=== PATIENT | female | born 1995 | race Caucasian/White ===

== ENCOUNTER 2024-03-12 18:55 | Emergency (ER) | payer BC, MEDICAID ==
[~2024-03-12] VITALS: Ht 172.7 cm; Wt 92.8 kg
[~2024-03-12 18:55] MED LIST: IBUP-24 PO
[2024-03-12] MEDS: proCHLORperazine 10 MG/2 ml inj IV ONE (19:47)
[2024-03-12] MEDS: acetaminophen 325mg tablet PO ONE (19:47)
[2024-03-12] MEDS: normal saline 1000ml 1,000 ML IV ONE (19:47)
[2024-03-12] MEDS: ketorolac trometh 15mg/ml vial 15 MG/ML ML IV ONE (19:51)
[2024-03-12] MEDS: diphenhydrAMINE 50 mg/ml inj IV ONE (20:07)
[2024-03-12 20:18] VITALS: BP 140/89; PULSE 89; RESP 18; TEMP 98.6; O2SAT 99
== END 2024-03-12 20:19 | disposition home or self-care (01) ==
LOC: ER 18:56
DX: G43.909 Migraine, unspecified, not intractable, without status migrainosus (principal)
CPT/HCPCS: 96374; 96375; 99284; J0780; J1200; J1885; J7030

== ENCOUNTER 2024-06-11 19:24 | Emergency (ER) | payer MEDICAID ==
[~2024-06-11] VITALS: Ht 172.7 cm; Wt 90.9 kg
[2024-06-11 20:17] LABS: URINE HCG NEGATIVE (NEG)
[2024-06-11 20:22] LABS: BILIRUBIN,URINE NEGATIVE (Neg); CLARITY,URINE SLIGHTLY CLOUDY (Clear); COLOR,URINE YELLOW (Yellow); GLUCOSE, URINE NEGATIVE (Neg); KETONES,URINE NEGATIVE (Neg); LEUKOCYTE ESTERASE ,URINE TRACE (Neg); NITRITES, URINE POSITIVE (Neg); OCCULT BLOOD,URINE LARGE (Neg); PROTEIN,URINE 30 mg/dl (Neg); UROBILINOGEN,URINE 0.2 E.U/dL (0.2-1.0)
[2024-06-11 20:38] LABS: UA COLLECTION TYPE NON-SPECIFIED
[2024-06-11 20:39] LABS: BACTERIA,URINE 3+ /HPF (Neg); RBC,URINE TNTC /HPF (0-2); SQUAMOUS EPITHELIAL CELL,UR FEW /LPF (FEW)
[2024-06-11] MEDS ORDERED: CEPH-585 PO (20:53)
[2024-06-11] MEDS ORDERED: PHEN-716 PO (20:53)
[2024-06-11] MEDS: phenazopyridine 100mg tablet PO ONE (20:55)
[2024-06-11] MEDS: CefTRIAXone 1000mg IM Kit (w/lidocaine diluent) IM ONE (20:55)
[2024-06-11 21:03] VITALS: BP 140/80; PULSE 82; RESP 18; TEMP 98.9; O2SAT 99
== END 2024-06-11 21:05 | disposition home or self-care (01) ==
LOC: ER 19:25
DX: N39.0 Urinary tract infection, site not specified (principal); Z88.6 Allergy status to analgesic agent
CPT/HCPCS: 81001; 81025; 87088; 87186; 96372; 99283; J0696; 87077

== ENCOUNTER 2024-11-12 08:48 | Emergency (ER) | payer MEDICAID ==
[~2024-11-12] VITALS: Ht 172.7 cm; Wt 93.6 kg
[~2024-11-12 08:48] MED LIST changes: +PHEN-716 PO
[2024-11-12 08:56] VITALS: TEMP 100.4
[2024-11-12 09:25] LABS: MEAN PLATELET VOLUME 8.0 FL (7.4-10.4); RED CELL DISTRIBUTION WIDTH 13.9 % (11.5-14.5)
[2024-11-12 09:34] LABS: LEUKOCYTE ESTERASE ,URINE NEGATIVE (Neg); NITRITES, URINE NEGATIVE (Neg); OCCULT BLOOD,URINE NEGATIVE (Neg)
[2024-11-12 09:37] LABS: CREATININE 0.87 MG/DL (0.40-0.90); TOTAL CARBON DIOXIDE 27.6 MMOL/L (24-32); eCRCL 95 ML/MIN; eGFR 76 ML/MIN
[2024-11-12 09:44] LABS: UA COLLECTION TYPE CLN CATCH MIDSTREAM
[2024-11-12] MEDS ORDERED: metoclopramide 5 mg/ml inj IV ONE (09:50)
--- NOTE | 2024-11-12 09:53 | Physician Documentation ---
History of Present Illness General Chief Complaint: Vomiting w/diarrhea Stated Complaint: VOMITING Time Seen by MD: 09:43 OK to notify your PCP?: No Primary Medical Doctor: [facility] Source: patient, RN notes reviewed Mode of Arrival: Ambulatory, Dropped Off Exam Limitations: no limitations History of Present Illness Initial Comments 28 year old female complains of frontal headache, nausea/vomiting and diarrhea. Symptoms began last night with nausea, vomiting, and diarrhea. She has been has been unable to keep any food or fluids down. Today she began having the frontal headache as well as cramping back and leg pains. Additionally she reports diffuse cramping abdominal pain. She denies chance for secondary to a copper IUD. She denies any known recent sick contacts or recent consumption of questionable foods. Medication Reconciliation Allergies: Coded Allergies: NSAIDS (Non-Steroidal Anti-Inflamma (Verified Adverse Reaction, Unknown, 11/12/24) GASTRIC SLEEVE SURGERY Scheduled Phenazopyridine HCl (Pyridium), 1 TAB PO Q8H Scheduled PRN Ibuprofen (Advil), 600 MG PO TID PRN PRN for pain, (Reported) ONDANSETRON ODT 4mg tablet (Ondansetron Odt), 1 TABLET PO Q6H PRN for nausea/vomiting Past Medical History Past Medical History: UTI Past Surgical History: no surgical history Last Menstrual Period: Oct 19, 2024 Alcohol Use: None Drug Use: none Lives In: Home Review of Systems All Other Systems at this time: Reviewed and Negative ROS headache as well as other positive symptoms as stated above in the HPI, otherwise all systems are reviewed and negative. Physical Exam Physical Exam Vital Signs: RN Vital Signs have been reviewed: Yes, Temperature: 100.4, Heart Rate: 116, Respiratory Rate: 16, BP: 133/80, Pulse Oximetry: 98, Weight: 93.600 Pulse Oximetry Reflects: adequate oxygenation Physical Exam VITALS: Reviewed and as above. GENERAL: Alert, no apparent distress. HEENT: Normocephalic, atraumatic, PERRL, EOMI, dry mucosa, no erythema RESPIRATORY: Lungs clear, normal breath sounds, no respiratory distress. CHEST: No accessory muscle use, no retractions CV: Regular rate, rhythm, no edema, no murmur, No: JVD GI: Mild diffuse abdominal tenderness. Soft, bowels sounds present, no rebound, guarding, or rigidity MUSCULOSKELETAL No deformities, no edema SKIN: Warm and dry, no rash NEURO: Oriented x4, No motor or sensory deficit PSYCH: Normal mood and affect, no agitation Progress Progress Note 1039: Reevaluation: She reports feeling much better after medications and fluids. Wishes to be discharged. Results/Orders Reviewed/noted all lab results: Yes Results/Orders Medications Received in ER Medications (Trade) Dose Ordered Sig/Hakan Route PRN Reason Start Time Stop Time Status Last Admin Dose Admin (0.9% sodium chloride (NS) 1000ml IV soln) 1,000 ml ONCE ONCE IVB 11/12/24 09:50 11/12/24 09:51 DC 11/12/24 09:57 1,000 ML (0.9% sodium chloride (NS) 1000ml IV soln) 1,000 ml ONCE ONCE IVB 11/12/24 09:50 11/12/24 10:16 DC 11/12/24 10:26 1,000 ML (Robinul inj) 0.1 mg ONCE ONCE IV 11/12/24 09:50 11/12/24 09:51 DC 11/12/24 09:59 0.1 MG (Benadryl inj.) 25 mg ONCE ONCE IV 11/12/24 09:55 11/12/24 09:56 DC 11/12/24 10:00 25 MG (Reglan inj) 5 mg ONCE ONCE IV 11/12/24 09:55 11/12/24 09:56 DC 11/12/24 10:01 5 MG Vital Signs 11/12/24 11/12/24 11/12/24 11/12/24 08:56 09:25 10:32 11:00 Temp 100.4 Pulse 116 85 96 Resp 20 16 14 16 B/P (MAP) 133/80 121/79 (93) 114/69 Pulse Ox 98 100 100 Laboratory Tests Test 11/12/24 09:07 11/12/24 09:16 Urine Specimen Description Cln catch midstream Urine Color Yellow Urine Clarity Clear Urine pH 6.0 Urine Specific [place] >=1.030 Urine Protein Negative Urine Glucose (UA) Negative Urine Ketones Negative Urine Occult Blood Negative Urine Nitrite Negative Urine Bilirubin Negative Urine Urobilinogen 0.2 Urine Leukocyte Esterase Negative Urine Culture Indicated Not ind Volume Urine Centrifuged 10 ml Urine Comment White Blood Count 3.2 L Red Blood Count 4.83 Hemoglobin 13.4 Hematocrit 40.5 Mean Corpuscular Volume 83.9 Mean Corpuscular Hemoglobin 27.8 Mean Corpuscular Hemoglobin Concent 33.2 Red Cell Distribution Width 13.9 Platelet Count 182 Mean Platelet Volume 8.0 Neutrophils (%) (Auto) 79.9 H Lymphocytes (%) (Auto) 11.9 L Monocytes (%) (Auto) 7.5 Eosinophils (%) (Auto) 0.2 Basophils (%) (Auto) 0.5 Neutrophils # (Auto) 2.6 Lymphocytes # (Auto) 0.4 L Monocytes # (Auto) 0.2 Eosinophils # (Auto) 0.0 Basophils # (Auto) 0.0 CBC Comment Sodium Level 137 Potassium Level 3.5 Chloride Level 102 Carbon Dioxide Level 27.6 Anion Gap 7 L Blood Urea Nitrogen 13 Creatinine 0.87 Estimated GFR/1.73 m2 76 BUN/Creatinine Ratio 14.9 Glucose Level 109 H Calcium Level 8.2 L Albumin 4.1 Chemistry Comments Medical Decision Making Additional info obtained from: old records (seen in june for UTI) Departure Time of Disposition: 10:40 Disposition: 01 HOME / SELF CARE / HOMELESS Impression: Primary Impression: Vomiting Qualified Codes: R11.2 - Nausea with vomiting, unspecified Additional Impression: Diarrhea Qualified Codes: R19.7 - Diarrhea, unspecified Condition: Stable Discharge Instructions: Diarrhea, Adult, Nausea and Vomiting, Adult, [id number] Additional Instructions: Take Zofran as needed for nausea. Drink plenty of fluids. Follow up with your regular doctor. Return to the ER for new or worsening symptoms or other concerns Prescriptions ONDANSETRON ODT 4mg tablet (ONDANSETRON ODT) 4 Mg Tab.rapdis 1 TABLET PO Q6H PRN for nausea/vomiting, #12 TABLET Prov: JADIEL SANDERS MD 11/12/24 Education Educated: Patient Educated regarding: diagnosis, treatment, need for follow up Signature Scribe Signature: Scribed for Jadiel Sanders MD by Татьяна Funk . 11/12/24 10:15 JADIEL SANDERS MD Nov 12, 2024 09:53 ТАТЬЯНА MESSER Nov 12, 2024 10:32
[2024-11-12] MEDS: normal saline 1000ML IV soln IVB ONE ×2 (09:57→10:26)
[2024-11-12] MEDS: glycopyrrolate 0.2mg/ml inj IV ONE (09:59)
[2024-11-12] MEDS: metoclopramide 5 mg/ml inj IV ONE (10:01)
[2024-11-12] MEDS ORDERED: ONDA-243 PO (10:42)
[2024-11-12 11:00] VITALS: BP 114/69; PULSE 96; RESP 16; O2SAT 100
== END 2024-11-12 11:03 | disposition home or self-care (01) ==
LOC: ER 08:48
DX: R11.10 Vomiting, unspecified (principal); R19.7 Diarrhea, unspecified; R51.9 Headache, unspecified; Z88.6 Allergy status to analgesic agent; Z79.899 Other long term (current) drug therapy
CPT/HCPCS: 36415; 80048; 81003; 85025; 96361; 96374; 96375; 99284; J1200; J2765; J3490; J7030